=== PATIENT | female | born 1990 | race Caucasian/White ===

== ENCOUNTER 2017-09-27 17:56 | Emergency (ER) | payer MEDICARE, OTHER ==
[2017-09-27 18:04] VITALS: RESP 18; O2SAT 100
[2017-09-27] MEDS ORDERED: Sodium Chloride 0.9% 1,000 ML IV ONE ×2 (19:15→20:33)
[2017-09-27] MEDS ORDERED: (Novolin R) Insulin Human Regular 100 units/ml vial IV ONE ×2 (19:18→20:02)
--- NOTE | 2017-09-27 19:19 | C.PDOC ---
History Of Present Illness 27 y/o female with hx of insulin dependent diabetes presents to ED with complaints of high blood sugar after checking today at 11AM and found it to be in the 300's. Pt states she checks her blood sugar normally every three hours. Associated symptoms are poor appetite, nausea, frequent thirst and urination, and sore throat. Denies diarrhea, ear aches, vomiting, or fever. Pt also states she did not have any adjusting insulin regimens. Chief Complaint (Nursing): High Blood Sugar History Per: Patient History/Exam Limitations: no limitations Onset/Duration Of Symptoms: Hrs Current Symptoms Are (Timing): Still Present Current Diabetic Medications: Insulin Associated Infectious Symptoms: Sore Throat, Urinary Frequency, Nausea. denies : Cough, Vomiting, Diarrhea Treatment Prior To Provider Evaluation: Bianca ([id number]) Recent travel outside of the [place]: No Past Medical History Reviewed: Historical Data, Nursing Documentation, Vital Signs Vital Signs: Last Vital Signs Temp 98.5 F 09/27/17 21:00 Pulse 80 09/27/17 21:00 Resp 18 09/27/17 21:00 BP 119/79 09/27/17 21:00 Pulse Ox 100 09/27/17 21:18 - Medical History PMH: Diabetes, Hypothyroidism - [facility] Procedures DEBRIDEMENT OF NAIL, NAIL BED OR NAIL FOLD (03/23/14) Family History: States: Unknown Family Hx - Social History Hx Tobacco Use: No Hx Alcohol Use: No Hx Substance Use: No - Immunization History Hx Influenza Vaccination: No Hx Pneumococcal Vaccination: No Review Of Systems Constitutional: Positive for: Other (High blood sugar). Negative for: Fever ENT: Positive for: Other (sore throat ). Negative for: Ear Pain Respiratory: Negative for: Cough, Shortness of Breath Gastrointestinal: Positive for: Nausea. Negative for: Vomiting, Diarrhea Genitourinary: Positive for: Frequency. Negative for: Vaginal Discharge, Vaginal Bleeding Skin: Negative for: Rash Neurological: Negative for: Weakness, Numbness Physical Exam - Physical Exam Appears: Well, Non-toxic, No Acute Distress Skin: Normal Color, Warm, Dry Head: Atraumatic, Normacephalic Eye(s): bilateral: Normal Inspection, PERRL Oral Mucosa: Moist Throat: Normal, No Erythema, No Exudate Neck: Supple Chest: Symmetrical, No Tenderness Cardiovascular: Rhythm Regular Respiratory: Normal Breath Sounds, No Rales, No Rhonchi, No Wheezing Gastrointestinal/Abdominal: Soft, No Tenderness, No Distention Extremity: Normal ROM, No Tenderness, No Pedal Edema Extremity: Bilateral: Normal Color And Temperature, Normal ROM Neurological/Psych: Oriented x3, Normal Speech, Normal Cognition ED Course And Treatment - Laboratory Results Result Diagrams: 09/27/17 19:29 09/27/17 19:29 O2 Sat by Pulse Oximetry: 100 (RA) Pulse Ox Interpretation: Normal Medical Decision Making Medical Decision Making: Ordered blood work and urinalysis. Administered Zofran, IV Insulin and IV fluids. Disposition - Disposition Referrals: [facility] [Outside] Disposition: HOME/ ROUTINE Disposition Time: 21:14 Condition: FAIR Instructions: Diabetic Hyperglycemia (ED) Forms: [employer] (Luxembourgish) - Clinical Impression Clinical Impression: Hyperglycemia - Scribe Statement The provider has reviewed the documentation as recorded by the Scribe Amber Douglas All medical record entries made by the Scribe were at my direction and personally dictated by me. I have reviewed the chart and agree that the record accurately reflects my personal performance of the history, physical exam, medical decision making, and the department course for this patient. I have also personally directed, reviewed, and agree with the discharge instructions and disposition.
[2017-09-27] MEDS ORDERED: Sodium Chloride 0.9% 1,000 ML ONE (19:30)
[2017-09-27 19:33] LABS: BASO % 0.5 % (0.0-2.0); EOS % 0.2 % (0.0-4.0); HEMOGLOBIN 14.3 g/dL (11.0-16.0); LYMPH # 2.6 K/uL (1.0-4.3); LYMPH % 24.7 % (20.0-40.0); MEAN CELL VOLUME 88.7 fL (81.0-99.0); MEAN CORPUSCULAR HEMOGLOBIN 29.5 pg (27.0-31.0); MEAN CORPUSCULAR HGB CONC 33.3 g/dL (33.0-37.0); MEAN PLATELET VOLUME 7.9 fL (7.2-11.7); MONO # 0.5 K/uL (0.0-0.8); MONO % 4.7 % (0.0-10.0); NEUT # 7.5 K/uL (1.8-7.0); NEUT % 69.9 % (50.0-75.0); RBC 4.86 Mil/uL (3.80-5.20); RED CELL DISTRIBUTION WIDTH 15.8 % (11.5-14.5)
[2017-09-27 19:34] LABS: WHITE BLOOD COUNT 10.7 K/uL (4.8-10.8)
[2017-09-27 19:37] LABS: SQUAMOUS EPITHIAL 4 /hpf (0-5); URINE BILIRUBIN NEGATIVE (NEGATIVE); URINE BLOOD TRACE (NEGATIVE); URINE CLARITY Clear (Clear); URINE COLOR Straw (YELLOW); URINE GLUCOSE (UA) 3+ mg/dL (Normal); URINE LEUKOCYTE ESTERASE NEG Leu/uL (Negative); URINE NITRATE NEGATIVE (NEGATIVE); URINE PROTEIN NEGATIVE (NEGATIVE); URINE UROBILINOGEN NORMAL mg/dL (0.2-1.0)
[2017-09-27] MEDS ORDERED: (Novolin R) Insulin Human Regular 100 units/ml vial ONE (19:54)
[2017-09-27 20:06] LABS: ALB/GLOB RATIO 1.3 (1.0-2.1); ALBUMIN 4.1 g/dL (3.5-5.0); ALT/SGPT 15 U/L (9-52); AST/SGOT 15 U/L (14-36); BLOOD UREA NITROGEN 17 mg/dL (7-17); CALCIUM 9.2 mg/dl (8.6-10.4); GFR AFRICAN-AMERICAN > 60; GFR NON-AFRICAN AMERICAN > 60; LIPASE 60 U/L (23-300)
[2017-09-27 21:02] VITALS: BP 119/79; PULSE 80; TEMP 98.5
== END 2017-09-27 21:40 | disposition home or self-care (01) ==
LOC: C.ER 17:56
DX: E11.65 Type 2 diabetes mellitus with hyperglycemia (principal); Z79.4 Long term (current) use of insulin
CPT/HCPCS: 80053; 81001; 82948; 83690; 85025; 96361; 96374; 96375; 99284; J2405; J7040

== ENCOUNTER 2018-11-09 21:31 | Emergency (ER) | payer MEDICARE, OTHER ==
[2018-11-09 22:02] VITALS: BP 122/86; PULSE 88; RESP 18; TEMP 97.9; O2SAT 99
[2018-11-09] MEDS: Albuterol 0.083% Inhal Sol (2.5 mg/3 mL) UD INH SCH ×2 (22:29→22:45)
[2018-11-09] MEDS ORDERED: Albuterol 0.083% Inhal Sol (2.5 mg/3 mL) UD ONE (22:29)
--- NOTE | 2018-11-09 23:13 | C.PDOC ---
History Of Present Illness 28 year old female presents with cough, body aches, sore throat, and headache for the past 10 days. Patient called her PMD's office who called in Rx for amoxicillin PO which she completed. She also reports waking up with purulent discharge to bilateral eyes with mild redness. Denies vomiting, diarrhea, fever, chills, or SOB. HPI: Influenza Time Seen by Provider: 11/09/18 22:03 Chief Complaint: ENT Problem History Per: Patient Exam Limitations: no limitations Have you had recent travel within the past 21 days to any of the following countries: [place], [place], [place] or [place]?: No Onset/Duration Of Symptoms: Days (10) Symptoms include: headache, cough Sick Contacts (Context): None Hx Influenza Vaccination: No Past Medical History Reviewed: Historical Data, Nursing Documentation, Vital Signs Vital Signs: Last Vital Signs Temp 97.9 F 11/09/18 21:55 Pulse 88 11/09/18 21:55 Resp 18 11/09/18 21:55 BP 122/86 11/09/18 21:55 Pulse Ox 99 11/09/18 21:55 - Medical History PMH: Diabetes, Hypothyroidism - [facility] Procedures DEBRIDEMENT OF NAIL, NAIL BED OR NAIL FOLD (03/23/14) Family History: States: Unknown Family Hx - Social History Hx Tobacco Use: No Hx Alcohol Use: No Hx Substance Use: No - Immunization History Hx Influenza Vaccination: No Hx Pneumococcal Vaccination: No Review Of Systems Constitutional: Negative for: Fever, Chills ENT: Positive for: Throat Pain Cardiovascular: Negative for: Chest Pain, Palpitations Respiratory: Positive for: Cough. Negative for: Shortness of Breath Gastrointestinal: Negative for: Nausea, Vomiting, Diarrhea Musculoskeletal: Positive for: Other (Body aches) Neurological: Positive for: Headache Physical Exam - Physical Exam Appears: Non-toxic Skin: Normal Color, Warm, Dry Head: Atraumatic, Other (Chronic facial deformity) Eye(s): bilateral: PERRL, EOMI, Other (crusting at the lids, mild ciliary injection) Ear(s): Bilateral: Normal Nose: Normal Oral Mucosa: Moist Throat: Normal, No Erythema, No Exudate Neck: Normal, Supple Chest: Symmetrical, No Tenderness Cardiovascular: Rhythm Regular Respiratory: Decreased Breath Sounds, No Rales, No Rhonchi, No Wheezing Neurological/Psych: Oriented x3, Normal Speech Gait: Steady - ECG O2 Sat by Pulse Oximetry: 99 (Room air) Pulse Ox Interpretation: Normal - Progress ED Course And Treament: Albuterol nebulizer and prednisone administered. On reevaluation, patient is resting comfortably in no acute distress with clear breath sounds, vitals are stable, will discharge home with Rx and instructions to follow up with PMD. Condition: Re-examined, Improving,but remains with symptoms Disposition - Disposition Disposition: HOME/ ROUTINE Disposition Time: 12:00 Condition: STABLE Additional Instructions: Please follow up with PMD Increase PO fluids Return to ER if worse Prescriptions: Benzonatate [Tessalon Perles] 200 mg PO TID #14 sgl Cetirizine HCl [Zyrtec] 10 mg PO DAILY #14 capsule Ibuprofen [Motrin] 600 mg PO Q6H #20 tab predniSONE [Prednisone] 40 mg PO DAILY #8 tab Tobramycin 0.3% [Tobrex 0.3% Ophth Soln] 1 drop OS BID #1 bottle Instructions: Viral Upper Respiratory Infection, Adult (DC) Forms: [employer] (Lao) - Clinical Impression Clinical Impression: Upper respiratory infection, Conjunctivitis - PA / PRIZE COORDINATOR / Resident Statement MD/DO has reviewed & agrees with the documentation as recorded. - Scribe Statement The provider has reviewed the documentation as recorded by the Scribandre Wilson All medical record entries made by the Scribe were at my direction and personally dictated by me. I have reviewed the chart and agree that the record accurately reflects my personal performance of the history, physical exam, medical decision making, and the department course for this patient. I have also personally directed, reviewed, and agree with the discharge instructions and disposition.
== END 2018-11-09 23:36 | disposition home or self-care (01) ==
LOC: C.ER 21:31
DX: H10.9 Unspecified conjunctivitis (principal); J06.9 Acute upper respiratory infection, unspecified; E11.9 Type 2 diabetes mellitus without complications; E03.9 Hypothyroidism, unspecified